=== PATIENT | female | born 1925 | race Caucasian/White ===

== ENCOUNTER → 2016-09-30 | Outpatient (CLI) | payer OTHER | LOC: MMPC 09:00 | PROVIDERS: ATTEND Internal Medicine | DX: J06.9 Acute upper respiratory infection, unspecified (principal) | CPT/HCPCS: 99213; G0463 ==

== ENCOUNTER → 2016-12-26 | Outpatient (CLI) | payer OTHER ==
[2016-12-26 16:09] LABS: BASOPHILS # (AUTO) 0.05 10*3/UL; BASOPHILS % (AUTO) 0.7 % (0-1); EOSINOPHILS # (AUTO) 0.04 10*3/UL; EOSINOPHILS % (AUTO) 0.6 % (0-8); HEMATOCRIT 48.2 % (37.0-47.0); HEMOGLOBIN 15.7 g/dL (12.0-16.0); MEAN CORPUSCULAR HEMOGLOBIN 29.2 PG (27-31); MEAN CORPUSCULAR HGB CONC 32.6 g/dL (33-37); MEAN CORPUSCULAR VOLUME 89.6 FL (81-99); MEAN PLATELET VOLUME 11.7 FL (7.4-12.2); MONOCYTES # (AUTO) 0.39 10*3/UL (0.3-0.8); MONOCYTES % (AUTO) 5.4 % (5-15); NEUTROPHILS # (AUTO) 4.35 10*3/UL; NEUTROPHILS % (AUTO) 60.1 % (50-80); RED BLOOD COUNT 5.38 10^6/uL (4.20-5.40)
[2016-12-26 16:10] LABS: PLATELET MORPHOLOGY COMMENT NORMAL MORPHOLOGY (NORM); RBC MORPHOLOGY COMMENT NORMAL MORPHOLOGY (NORM); WBC MORPHOLOGY COMMENT NORMAL MORPHOLOGY (NORM)
[2016-12-26 16:22] LABS: BUN/CREATININE RATIO 22.22 (6-20); CALCIUM 9.6 mg/dL (8.7-10.7); CHOL/HDL RATIO 3.88 RATIO (0-4.0); LDL CHOLESTEROL,CALCULATED 121.8 mg/dL
[2016-12-27 14:32] LABS: HEMOGLOBIN A1C 5.56 % (4.2-6.0)
== END ==
LOC: LAB 15:48
PROVIDERS: ATTEND Internal Medicine
DX: I48.91 Unspecified atrial fibrillation (principal); R73.09 Other abnormal glucose; M25.562 Pain in left knee; M25.561 Pain in right knee
CPT/HCPCS: 36415; 80053; 80061; 83036; 84443; 85025

== ENCOUNTER → 2016-12-27 | Outpatient (CLI) | payer OTHER | LOC: MMPC 11:11 | PROVIDERS: ATTEND Internal Medicine | DX: R73.09 Other abnormal glucose (principal); I48.91 Unspecified atrial fibrillation | CPT/HCPCS: 99214; G0463 ==

== ENCOUNTER 2017-01-20 04:05 | Emergency (ER) | payer OTHER ==
[2017-01-20 04:16] VITALS: RESP 16; TEMP 97
[2017-01-20] MEDS ORDERED: ONDANSETRON 4 MG/2 ML VIAL IVP ONE (04:17)
[2017-01-20] MEDS ORDERED: NORMAL SALINE 10 ML SYRINGE FLUSH IVP PRN (04:17)
[2017-01-20] MEDS ORDERED: Sodium Chloride 0.9% 1,000 ML PRIMARY IV ONE (04:17)
[2017-01-20 04:43] LABS: BASOPHILS # (AUTO) 0.02 10*3/UL; BASOPHILS % (AUTO) 0.2 % (0-1); EOSINOPHILS # (AUTO) 0.01 10*3/UL; EOSINOPHILS % (AUTO) 0.1 % (0-8); HEMATOCRIT 46.5 % (37.0-47.0); HEMOGLOBIN 15.5 g/dL (12.0-16.0); MEAN CORPUSCULAR HGB CONC 33.3 g/dL (33-37); MEAN CORPUSCULAR VOLUME 90.1 FL (81-99); MEAN PLATELET VOLUME 11.7 FL (7.4-12.2); MONOCYTES % (AUTO) 3.9 % (5-15); NEUTROPHILS # (AUTO) 9.23 10*3/UL; NEUTROPHILS % (AUTO) 89.8 % (50-80); PLATELET MORPHOLOGY COMMENT NORMAL MORPHOLOGY (NORM); RBC MORPHOLOGY COMMENT NORMAL MORPHOLOGY (NORM); RED BLOOD COUNT 5.16 10^6/uL (4.20-5.40); WBC MORPHOLOGY COMMENT NORMAL MORPHOLOGY (NORM)
[2017-01-20 04:54] LABS: CALCIUM 9.2 mg/dL (8.7-10.7); SERUM ALBUMIN 3.9 g/dL (3.5-4.8)
[2017-01-20 04:56] LABS: C-REACTIVE PROTEIN 0.8 mg/dL (0.0-0.9); MAGNESIUM 1.7 mg/dL (1.6-2.4)
[2017-01-20] MEDS ORDERED: Ondansetron ODT Tab 8 MG TAB PO SCH (05:30)
--- NOTE | 2017-01-20 07:32 | PDOC ---
Nausea/Vomiting/Diarrhea HPI - General Chief Complaint: Nausea / Vomiting / Diarrhea Stated Complaint: Racing heart, nausea, diarrhea Date Seen by Provider: 01/20/17 Time Seen by Provider: 04:10 Source: POSITIVE: Patient Exam Limitations: POSITIVE: No limitations Nurse's Notes Reviewed & Considered: Yes - History of Present Illness Initial Comments: The patient is an 89-year-old female who presents to the emergency department with pounding heartbeat, nausea and vomiting and diarrhea. The patient reports that she developed stomach upset last night. She woke up with nausea and vomiting and has had an episode of diarrhea as well. She states that after vomiting her heart was "pounding". She thinks that her heart was beating fast as well. She does have a history of atrial fibrillation and currently takes no medications for this other than aspirin. She denies any complaints of chest pain, abdominal pain, shortness of breath, blood in her emesis or stool. - Patient Home Medications Home Medications: Home Medications Aspirin [Aspir 81] 81 mg PO DAILY tab 09/21/15 Cholecalciferol (Vitamin D3) [Vitamin D] 1 cap PO DAILY cap 09/21/15 Multivitamin [Multi-Vitamin Daily] 1 each PO DAILY tab 09/21/15 Vitamin B Complex 1 each PO QD tab 09/21/15 Vitamin E Acetate [Vitamin E] 1,000 unit PO DAILY cap 09/21/15 Ascorbic Acid [Vitamin C] 1,000 mg PO DAILY tab 07/03/16 Ondansetron Odt [Zofran Odt] 8 mg PO Q6H PRN #6 tab.rapdis 01/20/17 - Patient Allergies Allergies/Adverse Reactions: Allergies Allergy/AdvReac Type Severity Reaction Status Date / Time Sulfa (Sulfonamide Allergy Intermediate Nausea Verified 01/20/17 04:10 Antibiotics) codeine Allergy Nausea Verified 01/20/17 04:10 Past Medical History - heen HEENT History: Denies History Cardiovascular History: Other (please comment) Additional Cardiovasular History: afib with coumadin therapy?? Respiratory History: Denies History Gastrointestinal History: Diverticulitis Genitourinary History: Denies History Endocrine History: Denies History Musculoskeletal History: Denies History Prosthesis or Implant: No Neurological History: Denies History Blood Disorders: Denies History Psychiatric History: Denies History History of Sexually Transmitted Diseases: No Female Reproductive History: Denies History Obstetrical History: Denies History Cancer History: Denies History In Past Year Been Physically Harmed or Verbally Threatened: No History of MDRO: No History of Other Communicable Diseases: No Tobacco Use: Never Smoker Alcohol Use: Rarely Substance Use Type: None Previous Surgical History: Yes Type / Date of Surgery: hysterectomy. ovarian ca. hammer toes and bunions. d& c Anesthesia Reactions: Yes Significant Family History: No pertinent family hx Past Medical History Reviewed: Reviewed - No Changes ROS - Limitations ROS Limitations: No Limitations Constitution: DENIES: Chills, Fever Cardiovascular: REPORTS: Heart Racing, Heart Palpitations. DENIES: Chest Pain, Blood Pressure Problem, Edema Respiratory: REPORTS: Denies Resp Symptoms. DENIES: Hurts To Breathe, Shortness Of Breath Neurological: REPORTS: Denies Neuro Symptoms. DENIES: Dizziness Gastrointestinal: REPORTS: Nausea, Vomitting, Diarrhea. DENIES: Abdominal Pain , Black Stools, Bloody Stools Musculoskeletal: REPORTS: Denies MS Symptoms Genitourinary: REPORTS: Denies Symptoms Eyes: REPORTS: Denies Symptoms ENT: REPORTS: Denies Symptoms Skin: DENIES: Rash Nausea/Vomiting/Diarrhea Exam - General Appearance General Appearance: POSITIVE: Alert, Cooperative, No Acute Distress - HEENT HEENT: POSITIVE: Head Inspection Nml, Eyes Inspection Nml, Pharynx Inspect. Nml , Dry Mucous Membranes - Neck Neck: POSITIVE: Supple. NEGATIVE: Lymphadenopathy - Respiratory Respiratory: POSITIVE: No Respiratory Distress, Breath Sounds Normal - Cardiovascular Cardiovascular: POSITIVE: Irregularly Irreg Rhythm, Murmur (2 to 3/6 systolic murmur heard best over the left sternal border) Peripheral Pulses: Dorsalis-pedis (R): 2+, Dorsalis-pedis (L): 2+ - Abdomen Abdomen: Soft: (All Quadrants), Denies Tenderness: (All Quadrants), No Distention: (All Quadrants) - Back Back: POSITIVE: Normal Inspection - Skin Skin: POSITIVE: Intact, No Rash - Extremities Extremity: Normal ROM: (All Extremities), Normal Inspection: (All Extremities) - Neurological / Psychological Neurological: POSITIVE: Oriented X3, Motor Normal, Sensation Normal N/V/D Progress - Results Reviewed by me Lab Results Reviewed: Yes Lab Results:: Laboratory Results 01/20/17 Range/Units 04:36 WBC 10.28 (4.8-10.8) 10^3/uL RBC 5.16 (4.20-5.40) 10^6/uL Hgb 15.5 (12.0-16.0) g/dL Hct 46.5 (37.0-47.0) % MCV 90.1 (81-99) FL MCH 30.0 (27-31) PG MCHC 33.3 (33-37) g/dL RDW Std Deviation 47.7 (39-50) fL RDW Coeff of Rodrigue 14.8 H (11.5-14.5) % Plt Count 180 (140-350) 10*3/uL MPV 11.7 (7.4-12.2) FL Immature Gran % (Auto) 0.2 (0-5) % Neut % (Auto) 89.8 H (50-80) % Lymph % (Auto) 5.8 L (10-50) % [place] % (Auto) 3.9 L (5-15) % Eos % (Auto) 0.1 (0-8) % Baso % (Auto) 0.2 (0-1) % Immature Gran # (Auto) 0.02 10*3/UL Neut # (Auto) 9.23 10*3/UL Lymph # (Auto) 0.60 10*3/uL [place] # (Auto) 0.40 (0.3-0.8) 10*3/UL Eos # (Auto) 0.01 10*3/UL Baso # (Auto) 0.02 10*3/UL WBC Morphology Comment Normal morphology (NORM) Plt Morphology Comment Normal morphology (NORM) RBC Morph Comment Normal morphology (NORM) Sodium 140 (135-145) meq/L Potassium 3.6 L (3.8-5.2) meq/L Chloride 106 (98-112) meq/L Carbon Dioxide 20 L (23-33) meq/L Anion Gap 14 (5-20) BUN 24 H (7-22) mg/dL Creatinine 0.8 (0.50-1.20) mg/dL Estimated GFR (>60 ml/min/1.73m(2)) BUN/Creatinine Ratio 30.00 H (6-20) Glucose 143 H (78-110) mg/dL Calculated Osmolality 295.0 H (267-292) mOsm/kg Calcium 9.2 (8.7-10.7) mg/dL Magnesium 1.7 (1.6-2.4) mg/dL Total Bilirubin 0.8 (0.3-1.2) mg/dL AST 18 (8-39) IU/L ALT 20 (9-52) IU/L Alkaline Phosphatase 75 (38-126) IU/L Troponin I < 0.012 (< 0.040) ng/mL C-Reactive Protein 0.8 (0.0-0.9) mg/dL Total Protein 6.2 (6.1-8.0) g/dL Albumin 3.9 (3.5-4.8) g/dL Globulin 2.4 L (2.50-4.10) g/dL Albumin/Globulin Ratio 1.60 (1.3-2.0) mg/g Amylase 71 (30-110) U/L Lipase 62 (23-300) IU/L EKG Interpreted/Reviewed By Me:: Yes EKG Interpretation:: POSITIVE: Other (She does have atrial fibrillation with a normal rate, no ST segment depression or elevation) - Patient's Progress MDM / ED Course: On arrival the patient's heart rate is normal. She is in atrial fibrillation which is chronic. An IV was established and she did receive 1 L bolus of normal saline as well as Zofran IV. She was feeling significantly better. Her nausea has resolved and she denies any complaints of chest pain, palpitation, abdominal pain. Her vomiting and diarrhea is most likely secondary to gastroenteritis. The heart pounding was likely secondary to exertion from vomiting and associated atrial fibrillation. She is advised to push fluids and was prescribed Zofran as needed for nausea/vomiting. She is advised return to the emergency room if she develops increased abdominal pain, vomiting or dehydration, chest pain or shortness of breath, rapid heartbeat, any worsening or change in symptoms. - Consult Counseled: POSITIVE: Patient, Family, RE: Lab Results, RE: DX, RE: Need for F/U Patient Care Time - Estimated PCT Patient Care Time (In Minutes): 30 Vital Signs - Recent Vital Signs Vital Signs: Vital Signs (Last 8 hours) Temp Pulse Resp BP Pulse Ox 01/20/17 04:19 97.0 F 106 H 16 165/92 96 01/20/17 04:08 97.0 F 106 H 16 165/92 96 - VS Reviewed Vital Signs Reviewed: Yes Discharge Clinical Impression: Gastroenteritis, A-fib Discharge Disposition: Discharged to Home Condition: Stable Prescriptions / Orders: Ondansetron Odt [Zofran Odt] 8 mg PO Q6H PRN #6 tab.rapdis PRN Reason: Nausea / Vomiting Patient Instructions Given at Discharge: Gastroenteritis (ED) Additional Instructions: The EKG of your heart shows the atrial fibrillation which you have had for some time, there is no evidence of heart attack. The heart pounding was likely secondary to the atrial fibrillation and exertion from vomiting. Blood work did not show any sign of heart attack. Your nausea and vomiting as well as diarrhea is most likely secondary to a stomach flu. You have been given Zofran 8 mg which she can take every 6 hours as needed for nausea/vomiting. Push fluids. [place] diet until feeling better. Return to the emergency room if increased vomiting or dehydration, increased abdominal pain, any worsening or change in symptoms. Follow Up With: SERGO DIOR [Primary Care Provider] -
--- NOTE | 2017-01-21 05:41 | EKG ---
[address] [place] [address] Measurements Intervals [place] Rate: 92 P: [place]: 0 QRS: 130 QRSD: 114 T: -61 QT: 383 QTc: 433 Interpretive Statements ATRIAL FIBRILLATION POSSIBLE RIGHT VENTRICULAR HYPERTROPHY [SOME/ALL OF: PROMINENT R IN V1, LATE TRANSITION, RAD, FIOR, SSS] POSSIBLE LATERAL MYOCARDIAL INFARCTION [40+ ms Q WAVE AND/OR ST/T ABNORMALITY IN I/aVL/V5/V6], OF INDETERMINATE AGE MODERATE T-WAVE ABNORMALITY, CONSIDER INFERIOR ISCHEMIA [-0.1+ mV T WAVE IN II/aVF] INTERPRETATION BASED ON A DEFAULT AGE OF 40 YEARS Compared to ECG 09/12/2015 21:36:31 T-wave abnormality now present Possible ischemia now present Myocardial infarct finding still present Electronically Signed On 01-22-17 08:24:26 MDT by Ramesh Gross MD [email or web address]
== END 2017-01-20 05:33 | disposition home or self-care (01) ==
LOC: ER 04:05
DX: K52.9 Noninfective gastroenteritis and colitis, unspecified (principal); I48.91 Unspecified atrial fibrillation; R11.2 Nausea with vomiting, unspecified; R00.2 Palpitations; R19.7 Diarrhea, unspecified; Z79.82 Long term (current) use of aspirin; Z85.43 Personal history of malignant neoplasm of ovary
CPT/HCPCS: 80053; 82150; 83690; 83735; 84484; 85025; 86140; 93005; 93010; 96361; 96374; 99283 ×2; Q0162; J2405; J7030

== ENCOUNTER → 2017-02-01 | Outpatient (CLI) | payer OTHER ==
--- NOTE | 2017-02-01 11:55 | EKG ---
[address] [address] Measurements Intervals [place] Rate: 70 P: [place]: 0 QRS: 138 QRSD: 114 T: 24 QT: 405 QTc: 425 Interpretive Statements ATRIAL FIBRILLATION POSSIBLE RIGHT VENTRICULAR HYPERTROPHY LATERAL MYOCARDIAL INFARCTION, PROBABLY OLD Compared to ECG 01/20/2017 04:42:54 T-wave abnormality no longer present Possible ischemia no longer present Myocardial infarct finding still present Electronically Signed On 02-01-17 13:22:48 MDT by Rocco Howell [email or web address]
--- NOTE | 2017-02-01 13:43 | DI ---
PA /LATERAL CHEST X-RAY, 02/01/2017 12:51 PM : Clinical History: Bilateral edema of the lower extremity. Previous Exam: None at this facility. There is no acute soft tissue or bony abnormality. There is marked cardiomegaly with a "globular" con figuration. On the lateral film, there is no separation of the epicardial fat from the pericardial fa t and this is most consistent with a cardiomyopathy. No obvious coronary artery calcifications are id entified. There is mild to moderate CHF. No acute infiltrate or effusion is present. Mediastinal stru ctures are normal. There are no pulmonary nodules. Readin. Cardiomegaly with mild to moderate CHF. 2. The "globular" configuration of the heart in the absence of separation of the epicardial fat pad from the pericardial fat pad is consistent with a cardiomyopathy rather than a pericardial effusion. Echocardiography is recommended.
== END ==
LOC: EKG 11:38
PROVIDERS: ATTEND Family Medicine
DX: R60.0 Localized edema (principal); I50.9 Heart failure, unspecified; L60.9 Nail disorder, unspecified
CPT/HCPCS: 11719 ×2; 36415; 71020; 83880; 84484; 93005; 93010; 99213; G0463 ×2

== ENCOUNTER → 2017-02-06 | Outpatient (CLI) | payer OTHER | LOC: US 12:54 | PROVIDERS: ATTEND Family Medicine | DX: I48.91 Unspecified atrial fibrillation (principal); R60.0 Localized edema; I51.7 Cardiomegaly; I27.2 Other secondary pulmonary hypertension | CPT/HCPCS: 93306 ==

== ENCOUNTER → 2017-02-09 | Outpatient (CLI) | payer OTHER ==
[2017-02-09 15:39] LABS: BUN/CREATININE RATIO 23.75 (6-20); CALCIUM 9.7 mg/dL (8.7-10.7)
== END ==
LOC: MOB LAB 13:47
PROVIDERS: ATTEND Nurse Practitioner
DX: I50.9 Heart failure, unspecified (principal)
CPT/HCPCS: 36415; 80048; 83880; 99214

== ENCOUNTER → 2017-02-27 | Outpatient (CLI) | payer OTHER | LOC: MMPC 11:11 | PROVIDERS: ATTEND Internal Medicine | DX: I50.42 Chronic combined systolic (congestive) and diastolic (congestive) heart failure (principal) | CPT/HCPCS: 99214; G0463 ==